=== PATIENT | female | born 1960 | race Caucasian/White ===

== ENCOUNTER → 2017-02-11 | Outpatient (CLI) | payer OTHER ==
--- NOTE | 2017-02-13 15:09 | MR ---
EXAM DATE: 02/11/17 PATIENT'S AGE: 56 Patient: CHRIS RODRIGUEZ Facility: [place], [place] Site . Site : [id number] Study: MRI Extremity Right [id number]/13/2017 10:38:37 AM Ordering Physician: Milad Fatima Final Report: Indication: Pain. Evaluate posterior tibial tendon. Comparison: None. Technique: Thin axial and coronal PD and PD fat sat and sagittal T1 and STIR sequences. Findings: Tendons: Achilles is normal. Upper normal fluid retrocalcaneal bursa. Intact peroneal tendons. Upper normal fluid in the tendon sheath. Small amount of tenosynovitis fluid throughout the posterior tibialis tendon sheath. Tendon has normal caliber and signal. Diffuse effusion of the flexor hallucis tendon sheath. Some associated synovitis. Anterior extensor tendons are normal. Ankle joint: No fracture. Prominent subchondral edema and cysts with some sclerosis across the medial shoulder. Prominent edema and subchondral cysts and sclerosis anterior medial tibial plafond. Relative sparing through the lateral aspect of the joint. Small to moderate joint effusion. No discrete loose body or significant synovitis. Chronic irregular anteromedial osteophytic spurring. Ligaments: Syndesmotic ligaments are normal. Absent anterior talofibular ligament. Patulous anterior lateral capsule. Intact somewhat edematous posterior talofibular ligament. Intact calcaneofibular ligament. Chronic well corticated small ossicles within the deep fibers of the deltoid and moderately large chronic avulsion ossicle insertion at the medial malleolar tip. Edematous attenuated superficial fibers of the deltoid. Attenuated edematous calcaneonavicular spring ligaments are likely at least partially torn. Bones and soft tissues: Small effusion of the middle subtalar joint. No sinus tarsi syndrome. Plantar fascia thickness and signal is within normal limits. Focal degenerative arthrosis edema and cysts at the 2nd metatarsal base. No other degenerative or inflammatory change in the midfoot. Impression: 1. 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 Associated remote injury changes in the medial deltoid. 2. 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 3. Minimal posterior tibialis tenosynovitis. Effusion of the flexor hallucis tendon sheaths likely related to ankle joint effusion. Dictated by Eric Victoria MD @ Feb 11 2017 2:22PM (Electronic Signature) Report Signed by Proxy and Original Signed Document filed in the Medical Record. PAULINE
== END ==
LOC: MW.MRI 09:18
PROVIDERS: ATTEND Podiatrist Foot & Ankle Surgery
DX: M76.821 Posterior tibial tendinitis, right leg (principal); S93.491A Sprain of other ligament of right ankle, initial encounter; M65.871 Other synovitis and tenosynovitis, right ankle and foot
CPT/HCPCS: 73721-26-RT; 73721-RT

== ENCOUNTER 2021-10-05 07:37 | Day surgery (SDC) | payer OTHER ==
[~2021-10-05 07:37] MED LIST: Lactated Ringers 1,000 ML IV SCH; Midazolam 1 MG/ML 2 ML SDV ONE; Propofol 200 MG/20 ML SDV ONE; Sodium Chloride 0.9% 10 ML SDV IV PRN; Sodium Chloride 0.9% 10 ML Syringe FLUSH PRN; Sodium Chloride 0.9% 2.5 ML Syringe FLUSH PRN
--- NOTE | 2021-10-05 08:12 | PCM.PREANE ---
Preanesthetic Assessment - Anesthesia/Transfusion/Family Hx Anesthesia History: Prior Anesthesia Without Reaction Family History of Anesthesia Reaction: No Transfusion History: No Prior Transfusion(s) - Review of Systems General: No Symptoms Pulmonary: No Symptoms Cardiovascular: No Symptoms (HTN, HLD) Gastrointestinal: No Symptoms Neurological: No Symptoms Other: Reports: Thyroid Problems (Hypo) - Physical Assessment NPO Status Date: 10/03/21 NPO Status Time: 20:00 (Solids, >8 hr Liq) Vital Signs: Last Vital Signs Temp 96.1 F L 10/05/21 07:45 Pulse 95 10/05/21 07:45 Resp 15 10/05/21 07:45 BP 139/80 10/05/21 07:45 Pulse Ox 98 10/05/21 07:45 Height: 5 ft 4 in Weight: 78.471 kg ASA Class: 2 Mental Status: Alert & Oriented x3 Airway Class: Mallampati = 3 Dentition: Reports: Normal Dentition Thyro-Mental Finger Breadths: 3 Mouth Opening Finger Breadths: 3 ROM/Head Extension: Full Lungs: Clear to Auscultation, Normal Respiratory Effort Cardiovascular: Regular Rate, Regular Rhythm - Allergies Allergies/Adverse Reactions: Allergies Allergy/AdvReac Type Severity Reaction Status Date / Time bee venom protein (honey bee) Allergy Swelling Verified 09/29/21 13:59 - Acknowledgements Anesthesia Type Planned: General Anesthesia Pt an Appropriate Candidate for the Planned Anesthesia: Yes Alternatives and Risks of Anesthesia Discussed w Pt/Guardian: Yes Pt/Guardian Understands and Agrees with Anesthesia Plan: Yes PreAnesthesia Questionnaire HEENT History: Reports: Other (See Below) Other HEENT History: 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 Cardiovascular History: Reports: High Cholesterol, Hypertension Respiratory History: Reports: None Gastrointestinal History: Reports: None Genitourinary History: Reports: None 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: Musculoskeletal History: Reports: None Neurological History: Reports: Migraines Other Neuro History: no migraines for 2 years Psychiatric History: Reports: None Endocrine/Metabolic History: Reports: Hypothyroidism Hematologic History: Reports: None Immunologic History: Reports: None Oncologic (Cancer) History: Reports: None Other Dermatologic History: "very sensitive" skin - Past Surgical History Head Surgeries/Procedures: Reports: None HEENT Surgical History: Reports: None Cardiovascular Surgical History: Reports: None Respiratory Surgical History: Reports: None GI Surgical History: Reports: Cholecystectomy, Colonoscopy Female Surgical History: Reports: Section, Hysterectomy Endocrine Surgical History: Reports: None Neurological Surgical History: Reports: None Musculoskeletal Surgical History: Reports: None Oncologic Surgical History: Reports: None - SUBSTANCE USE Tobacco Use Status *Q: Never Tobacco User Recreational Drug Use History: No - HOME MEDS Home Medications: Home Meds Aspirin [Adult Low Dose Aspirin EC] 81 mg PO DAILY 09/29/21 [History] Cholecalciferol (Vitamin D3) [Vitamin D3] 1,000 unit PO DAILY 09/29/21 [History] EPINEPHrine [Epipen] 0.3 mg IM ONETIME PRN 09/29/21 [History] Hydrocortisone [Hydrocortisone 2.5% Crm] 1 dose TOP ASDIRECTED PRN 09/29/21 [History] Levothyroxine Sodium [Synthroid] 75 mcg PO QAM 09/29/21 [History] Naratriptan HCl [Amerge] 2.5 mg PO ONETIME PRN 09/29/21 [History] Pravastatin Sodium [Pravastatin (Pravachol)] 40 mg PO BEDTIME 09/29/21 [History] Ramipril 10 mg PO QAM 09/29/21 [History] estradioL [Estradiol (Twice Weekly)] 1 patch TOP ASDIRECTED 09/29/21 [History] hydroCHLOROthiazide [Hydrochlorothiazide] 12.5 mg PO QAM 09/29/21 [History] - CURRENT (IN HOUSE) MEDS Current Meds: Current Medications Lactated Ringer's (Ringers, Lactated) 1,000 mls @ 125 mls/hr IV ASDIRECTED [facility] Last Admin: 10/05/21 07:56 Dose: 125 mls/hr Documented by: Sodium Chloride (Sodium Chloride 0.9% 10 Ml Syringe) 10 ml FLUSH ASDIRECTED PRN PRN Reason: Keep Vein Open Sodium Chloride (Sodium Chloride 0.9% 2.5 Ml Syringe) 2.5 ml FLUSH ASDIRECTED PRN PRN Reason: Keep Vein Open Sodium Chloride (Sodium Chloride 0.9% 10 Ml Syringe) 10 ml FLUSH ASDIRECTED PRN PRN Reason: Keep Vein Open Sodium Chloride (Sodium Chloride 0.9% 2.5 Ml Syringe) 2.5 ml FLUSH ASDIRECTED PRN PRN Reason: Keep Vein Open Sodium Chloride (Sodium Chloride 0.9% 10 Ml Sdv) 10 ml IV ASDIRECTED PRN PRN Reason: IV Use Discontinued Medications Midazolam HCl (Midazolam 1 Mg/Ml 2 Ml Sdv) Confirm Administered Dose 2 mg .ROUTE .STK-MED ONE Stop: 10/05/21 07:27 Propofol (Propofol 200 Mg/20 Ml Sdv) Confirm Administered Dose 600 mg .ROUTE .STK-MED ONE Stop: 10/05/21 07:27
--- NOTE | 2021-10-05 09:38 | PCM.POSTAN ---
POST ANESTHESIA ASSESSMENT - MENTAL STATUS Mental Status: Alert, Oriented - VITAL SIGNS Vital Signs: Last Vital Signs Temp 96.1 F L 10/05/21 07:45 Pulse 95 10/05/21 07:45 Resp 15 10/05/21 07:45 BP 139/80 10/05/21 07:45 Pulse Ox 98 10/05/21 07:45 - RESPIRATORY Respiratory Status: Respiratory Rate WNL, Airway Patent, O2 Saturation Stable - CARDIOVASCULAR CV Status: Pulse Rate WNL, Blood Pressure Stable - GASTROINTESTINAL GI Status: No Symptoms - PAIN Pain Score: 0 - POST OP HYDRATION Hydration Status: Adequate & Stable
--- NOTE | 2021-10-05 09:42 | PCM.POSTAN ---
POST ANESTHESIA ASSESSMENT - MENTAL STATUS Mental Status: Alert, Oriented - VITAL SIGNS Vital Signs: Last Vital Signs Temp 98.1 F 10/05/21 09:33 Pulse 75 10/05/21 09:38 Resp 16 10/05/21 09:38 BP 103/59 L 10/05/21 09:38 Pulse Ox 99 10/05/21 09:38 - RESPIRATORY Respiratory Status: Respiratory Rate WNL, Airway Patent, O2 Saturation Stable - CARDIOVASCULAR CV Status: Pulse Rate WNL, Blood Pressure Stable - GASTROINTESTINAL GI Status: No Symptoms - POST OP HYDRATION Hydration Status: Adequate & Stable
--- NOTE | 2021-10-05 09:43 | PCM48HPAN ---
Post Anesthesia Note - EVALUATION WITHIN 48HRS OF ANESTHETIC Vital Signs in Normal Range: Yes Patient Participated in Evaluation: Yes Respiratory Function Stable: Yes Airway Patent: Yes Cardiovascular Function Stable: Yes Hydration Status Stable: Yes Pain Control Satisfactory: Yes Nausea and Vomiting Control Satisfactory: Yes Mental Status Recovered: Yes Vital Signs: Last Vital Signs Temp 98.1 F 10/05/21 09:33 Pulse 75 10/05/21 09:38 Resp 16 10/05/21 09:38 BP 103/59 L 10/05/21 09:38 Pulse Ox 99 10/05/21 09:38 - COMMENTS/OBSERVATIONS Free Text/Narrative:: Pt doing well post-op. VSS. No apparent anesthetic complications. Dr. Angel Kruger
--- NOTE | 2021-10-05 09:46 | PCM.OPNOTE ---
- General Post-Op/Procedure Note Date of Surgery/Procedure: 10/05/21 Operative Procedure(s): Screening colonoscopy Findings: Normal colonoscopy Pre Op Diagnosis: Screening colonoscopy Post-Op Diagnosis: same Anesthesia Technique: MAC Primary Surgeon: Rebeca Huitron Condition: Good
--- NOTE | 2021-10-06 23:28 | OR ---
SURGEON: REBECA HUITRON MD DATE OF PROCEDURE: 10/05/2021 PREOPERATIVE DIAGNOSIS: Screening colonoscopy. POSTOPERATIVE DIAGNOSIS: Screening colonoscopy. PROCEDURE PERFORMED: Screening colonoscopy. PRIMARY SURGEON: Rebeca Huitron MD ANESTHESIA: MAC. INSTRUMENT USED: Olympus colonoscope. EXTENT OF EXAM: To the cecum. PREPARATION: Good. LIMITATIONS: None. INDICATIONS FOR EXAMINATION: Patient is a 60-year-old female who presents to clinic for screening colonoscopy. I explained the procedure, expected perioperative course, and the risks. She verbalized understanding and wishes to proceed. PROCEDURE IN DETAIL: The patient was brought in to the endoscopy suite and placed in the left lateral decubitus position. A time-out was completed verifying the patient's name, age, date of , allergies, and procedure to be performed. Monitored anesthesia care was induced and continuous oxygen was provided via nasal cannula throughout the procedure. After adequate sedation was achieved, a digital rectal exam was performed. This exam was within normal limits. A well-lubricated colonoscope was inserted in the rectum and advanced under direct visualization to the level of cecum. The cecum was identified by both visual and anatomic landmarks. A photograph was taken of the cecal cap, however, I was unable to retroflex the scope within the cecum due to looping of the scope more proximally. The scope was then fully withdrawn while examining the color, texture, anatomy, and integrity of the mucosa from the cecum to the anal canal. The findings were consistent with normal colonic mucosa. The scope was then brought into the rectum and retroflexed to allow visualization of the anal canal opening. This appeared normal and a photograph was taken. The scope was then straightened out and fully withdrawn. The cecum to anus time was 11 minutes. The patient tolerated the procedure well and was transferred to the PACU in stable condition. ENDOSCOPIC DIAGNOSIS: Normal colonoscopy. RECOMMENDATION: Follow up in clinic in 10 years. [place] / ELISEO /[id number]
== END 2021-10-05 10:15 | disposition home or self-care (01) ==
LOC: MW.SDS 07:37
PROVIDERS: ATTEND Surgery
DX: Z12.11 Encounter for screening for malignant neoplasm of colon (principal); I10 Essential (primary) hypertension; E03.9 Hypothyroidism, unspecified; G43.909 Migraine, unspecified, not intractable, without status migrainosus; E78.00 Pure hypercholesterolemia, unspecified; Z79.899 Other long term (current) drug therapy; Z79.890 Hormone replacement therapy; Z90.49 Acquired absence of other specified parts of digestive tract; Z98.890 Other specified postprocedural states; Z91.030 Bee allergy status; Z79.82 Long term (current) use of aspirin
CPT/HCPCS: 45378; J2250; J2704; J7120

== ENCOUNTER 2025-04-04 17:24 | Emergency (ER) | payer BC ==
[2025-04-04 18:43] LABS: APPEARANCE,URINE CLEAR; BILIRUBIN,URINE NEGATIVE (NEGATIVE); COLOR,URINE YELLOW; GLUCOSE,URINE NEGATIVE (NEGATIVE); KETONES,URINE NEGATIVE (NEGATIVE); LEUKOCYTE ESTERASE,URINE NEGATIVE (NEGATIVE); NITRITE,URINE NEGATIVE (NEGATIVE); OCCULT BLOOD,URINE NEGATIVE (NEGATIVE); PROTEIN,URINE NEGATIVE (NEGATIVE); UROBILINOGEN,URINE 0.2 EU/dL (<2.0)
[2025-04-04 19:09] LABS: BASOPHILS ABSOLUTE AUTO 0.03 K/uL (0.00-0.20); BASOPHILS PERCENT AUTO 0.3 % (0.0-1.0); EOSINOPHILS ABSOLUTE AUTO 0.01 K/uL (0.00-0.45); EOSINOPHILS PERCENT AUTO 0.1 % (0.0-6.0); HEMATOCRIT 39.9 % (37.0-47.0); HEMOGLOBIN 13.9 g/dL (12.0-16.0); IMMATURE GRAN ABSOLUTE AUTO 0.02 K/uL (0.00-0.05); IMMATURE GRAN PERCENT AUTO 0.2 % (0.0-0.4); LYMPHOCYTES ABSOLUTE AUTO 1.28 K/uL (1.00-4.80); LYMPHOCYTES PERCENT AUTO 12.9 % (24.0-44.0); MEAN CORPUSCULAR HEMOGLOBIN 32.7 pg (28.0-32.0); MEAN CORPUSCULAR HGB CONC 34.8 g/dL (32.0-36.0); MEAN CORPUSCULAR VOLUME 93.9 fL (83.0-99.0); MEAN PLATELET VOLUME 9.1 fL (9.4-12.3); MONOCYTES ABSOLUTE AUTO 0.38 K/uL (0.00-0.80); MONOCYTES PERCENT AUTO 3.8 % (0.0-8.0); NEUTROPHILS ABSOLUTE AUTO 8.17 K/uL (1.80-7.70); NEUTROPHILS PERCENT AUTO 82.7 % (41.0-71.0); PLATELET COUNT,PLT 226 K/uL (150-400); RED BLOOD CELL COUNT 4.25 M/uL (4.10-5.30); WHITE BLOOD CELL COUNT,WBC 9.89 K/uL (3.9-11.3)
[2025-04-04] MEDS: Polyethylene Glycol 3350 Powder 17 GM Packet PO ONE (19:09)
[2025-04-04] MEDS: Tamsulosin 0.4 MG Cap.ER PO ONE (19:09)
[2025-04-04 19:35] LABS: CALCIUM 8.7 mg/dL (8.5-10.1); CARBON DIOXIDE,CO2 27.5 mmol/L (21.0-32.0); EST CRCL DRUG DOSING (CG) 49.72 mL/min; POTASSIUM,K 4.6 mmol/L (3.5-5.1)
== END 2025-04-04 21:16 | disposition home or self-care (01) ==
LOC: MW.ED 17:24
DX: K59.00 Constipation, unspecified (principal); R39.198 Other difficulties with micturition; R33.9 Retention of urine, unspecified; E78.00 Pure hypercholesterolemia, unspecified; I10 Essential (primary) hypertension; E03.9 Hypothyroidism, unspecified; Z91.030 Bee allergy status; Z79.82 Long term (current) use of aspirin; Z79.899 Other long term (current) drug therapy
CPT/HCPCS: 36415; 51798; 74018; 80048; 81003; 85025; 99284; A9270